=== PATIENT | female | born 1990 | race American Indian/Alaskan Native ===

== ENCOUNTER 2018-08-25 22:54 | Emergency (ER) | payer MEDICAID ==
[2018-08-25 23:28] VITALS: BP 154/103
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
[2018-08-26] MEDS ORDERED: TORADOL IM ONE (04:47)
[2018-08-26 04:53] LABS: HCG Qualitative,Urine Negative (Negative)
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
--- NOTE | 2018-08-26 06:06 | XRay Report ---
FINAL REPORT EXAM: XR TIBIA FIBULA 2V LT HISTORY: left galvan pain, COMPARISONS: None. FINDINGS: AP and lateral views left tibia and fibula No bone lesion, periosteal reaction, or fracture. No deformity or gross malalignment. IMPRESSION: Intact left tibia and fibula. Consider additional imaging for worsening/persistent symptoms.
== END 2018-08-26 04:34 | disposition home or self-care (01) ==
LOC: ED 22:54 → EDBD 22:54 → ED 08-26 04:34
DX: S06.9X9A Unspecified intracranial injury with loss of consciousness of unspecified duration, initial encounter (principal); S80.812A Abrasion, left lower leg, initial encounter; I10 Essential (primary) hypertension; F17.200 Nicotine dependence, unspecified, uncomplicated; V89.2XXA Person injured in unspecified motor-vehicle accident, traffic, initial encounter; Y93.89 Activity, other specified; Y92.488 Other paved roadways as the place of occurrence of the external cause; Y99.8 Other external cause status
CPT/HCPCS: 70450; 73590; 81025; 96372; 99284; J1885

== ENCOUNTER 2020-09-05 13:54 | Emergency (ER) | payer MEDICAID ==
--- NOTE | 2020-09-05 14:16 | Event Note ---
ED Screening Note ED Screening Note: co headache, dizziness, abd pain lmp 12/ seen at [facility] for the same 2 days ago and told everything was ok no cp no sob no n/v/d no fever or chills reports nearly passing out at work pmh none psh none rx none thc months ago This initial assessment/diagnostic orders/clinical plan/treatment(s) is/are subject to change based on patients health status, clinical progression and re- assessment by fellow clinical providers in the ED. Further treatment and workup at subsequent clinical providers discretion. Patient/guardian urged not to elope from the ED as their condition may be serious if not clinically assessed and managed. Initial orders include: labs ua ekg
[2020-09-05 14:25] VITALS: BP 128/80
[2020-09-05 14:46] LABS: Basophils % (Auto) 0.7 % (0.0-1.8); Eosinophils % (Auto) 1.2 % (0.0-4.3); Hematocrit 38.1 % (30.3-42.9); Hemoglobin 12.8 gm/dl (10.1-14.3); Lymphocytes # (Auto) 1.7 K/mm3 (1.2-5.4); Lymphocytes % (Auto) 47.9 % (13.4-35.0); Mean Corpuscular HGB Conc 34 % (30-34); Mean Corpuscular Volume 97 fl (79-97); Monocytes # (Auto) 0.4 K/mm3 (0.0-0.8); Monocytes % (Auto) 10.9 % (0.0-7.3); Platelet Count 244 K/mm3 (140-440); Red Blood Count 3.91 M/mm3 (3.65-5.03); Red Cell Distribution Width 13.2 % (13.2-15.2)
[2020-09-05 15:06] LABS: Alanine Aminotransferase 12 units/L (7-56); Albumin 4.1 g/dL (3.9-5); BUN/Creatinine Ratio 18; Blood Urea Nitrogen 14 mg/dL (7-17); Calcium 8.8 mg/dL (8.4-10.2); Hemolysis Index 12
== END 2020-09-05 14:30 | disposition left against medical advice (07) ==
LOC: ED 13:54
DX: R42 Dizziness and giddiness (principal); Z53.21 Procedure and treatment not carried out due to patient leaving prior to being seen by health care provider
CPT/HCPCS: 36415; 80053; 82550; 85025; 93005